=== PATIENT | male | born 1950 | race African-American/Black ===

== ENCOUNTER 2017-04-18 08:57 | Emergency (ER) | payer OTHER ==
[~2017-04-18] VITALS: Ht 172.7 cm; Wt 81.0 kg
[2017-04-18] MEDS ORDERED: KETOROLAC 60MG/2ML VIAL IM ONE (09:45)
[2017-04-18 09:48] VITALS: BP 150/96
== END 2017-04-18 11:49 | disposition home or self-care (01) ==
LOC: ER 09:00
DX: S20.219A Contusion of unspecified front wall of thorax, initial encounter (principal); E11.9 Type 2 diabetes mellitus without complications; E78.00 Pure hypercholesterolemia, unspecified; I10 Essential (primary) hypertension; V43.02XA Car driver injured in collision with other type car in nontraffic accident, initial encounter; Y93.89 Activity, other specified; Y92.89 Other specified places as the place of occurrence of the external cause; Y99.8 Other external cause status
CPT/HCPCS: 71020; 93005; 96372; 99284; J1885